=== PATIENT | female | born 1940 | race Caucasian/White ===

== ENCOUNTER 2024-10-12 07:48 | Emergency (ER) | payer MEDICARE | END 2024-10-12 09:04 | disposition home or self-care (01) | LOC: KA.ED 07:53 | DX: K62.89 Other specified diseases of anus and rectum (principal); I10 Essential (primary) hypertension; Z79.899 Other long term (current) drug therapy; Z86.16 Personal history of COVID-19; Z87.891 Personal history of nicotine dependence | CPT/HCPCS: 99283; 99284 ==